=== PATIENT | male | born 1970 | race Caucasian/White ===

== ENCOUNTER 2018-03-26 21:46 | Emergency (ER) | payer MEDICAID ==
[~2018-03-26] VITALS: Ht 167.6 cm; Wt 79.4 kg
[2018-03-26 21:49] VITALS: BP 115/76
--- NOTE | 2018-03-26 21:51 | NUR ---
TO BED # 7 VIA W/C, REPORT GIVEN TO KAMINI CARREON
--- NOTE | 2018-03-26 22:34 | NUR ---
PT BIB SELF C/O LEFT LOWER BACK PAIN RADIATING DOWN LEFT LEG FOR 15 DAYS, PT HAS BEEN TAKING TYLENOL AND MOTRIN W/ NO RELIEF. PT STATES HE HAS SCIATICA. PT DENIES TRAUMA TO AREA. SKIN TO AREA IS DRY, INTACT, NO REDNESS OR SWELLING. PT LAYING IN BED, MOANING AND FACIAL GRIMACING. NKDA, PMH SCIATICA
[2018-03-26] MEDS ORDERED: HYDROcodone/APAP 10/325 MG 1 TAB TAB PO STA (23:07)
[2018-03-26] MEDS ORDERED: KETOROLAC 60 MG/2 ML VIAL IM ONE (23:10)
[2018-03-26 23:29] LABS: BASOPHILS % (AUTO) 0.5 % (0.0-2.0); EOSINOPHILS # (AUTO) 0.3 K/uL (0-0.4); EOSINOPHILS % (AUTO) 2.8 % (0.0-4.0); HEMATOCRIT 40.2 % (36-52); HEMOGLOBIN 13.4 g/dL (12.0-18.0); LYMPHOCYTES # (AUTO) 4.2 K/uL (2.0-11.5); LYMPHOCYTES % (AUTO) 46.3 % (20.5-51.1); MEAN CORPUSCULAR HEMOGLOBIN 30 pg (27-31); MEAN CORPUSCULAR HGB CONC 33 g/dL (33-37); MEAN CORPUSCULAR VOLUME 88.1 fL (80-94); MONOCYTES # (AUTO) 0.8 K/uL (0.8-1.0); MONOCYTES % (AUTO) 8.6 % (1.7-9.3); NEUTROPHILS # (AUTO) 3.8 K/uL (1.8-7.7); NEUTROPHILS % (AUTO) 41.8 % (42.2-75.2); PLATELET COUNT (AUTO) 226 K/uL (140-450); RED BLOOD CELL COUNT(AUTO) 4.56 MIL/uL (4.20-6.10); RED CELL DISTRIBUTION WIDTH 13.9 % (11.6-13.7)
[2018-03-26 23:40] LABS: ANION GAP 9.6 (8-16); CARBON DIOXIDE 28.2 mmol/L (21-32); CREATININE 1.1 mg/dL (0.7-1.3); POTASSIUM 3.8 mmol/L (3.5-5.1)
--- NOTE | 2018-03-26 23:43 | NUR ---
PT TAKEN TO CT SCAN VIA WHEELCHAIR.
[2018-03-26 23:47] LABS: ALBUMIN 3.8 g/dL (3.4-5.0); TOTAL BILIRUBIN 0.1 mg/dL (0.0-1.0)
--- NOTE | 2018-03-26 23:56 | NUR ---
PT BACK FROM CT
--- NOTE | 2018-03-27 01:20 | NUR ---
PENDING D/C PAPERWORK FROM DR RESENDIZ.
--- NOTE | 2018-03-27 01:29 | NUR ---
Patient discharged with v/s stable. Written and verbal after care instructions given and explained. Patient alert, oriented and verbalized understanding of instructions. Ambulatory with steady gait. All questions addressed prior to discharge. ID band removed. Patient advised to follow up with PMD. Rx of FLEXERIL, IBUPROFEN, MEDROL, NORCO given. Patient educated on indication of medication including possible reaction and side effects. Opportunity to ask questions provided and answered.
[2018-03-27 01:30] VITALS: BP 133/77
== END 2018-03-27 01:30 | disposition home or self-care (01) ==
LOC: MED 21:46
DX: M54.42 Lumbago with sciatica, left side (principal); M54.17 Radiculopathy, lumbosacral region
CPT/HCPCS: 36415; 72131; 72192; 80053; 85025; 85651; 96372; 99285; J1885